=== PATIENT | female | born 1960 | race Caucasian/White ===

== ENCOUNTER 2017-04-27 12:52 | Emergency (ER) | payer MEDICARE, MEDICAID ==
[2017-04-27 13:15] VITALS: BP 123/89
[2017-04-27] MEDS ORDERED: Ketorolac 60 MG/2 ML SDV IM ONE (13:32)
--- NOTE | 2017-04-27 13:38 | EDM.PDOC ---
ED HPI GENERAL MEDICAL PROBLEM - General Chief Complaint: Neck Problem Stated Complaint: NECK PAIN/STIFFNESS Time Seen by Provider: 04/27/17 13:25 Source of Information: Reports: Patient History Limitations: Reports: No Limitations - History of Present Illness INITIAL COMMENTS - FREE TEXT/NARRATIVE: 56 yo female presents with progressive pain and stiffness in her neck since this past Saturday. Denies injury. She called the clinic yesterday and was told to go to the ER. Waited until today and now presents for the same issue. She denies fever or radiation down her arms. She has chronic low back problems and is on meds for that. Has an epidural this past Saturday in her back with some benefit. Doesn't believe she has ever had a neck X-ray, but has had injuries in the remote past. Tried to tip her head back yesterday to take a last drink out of her can of pop and this really hurt her neck. Has not taken anything additional for her neck pain over and above her usual meds for her back. Onset: Gradual Onset Date: 04/23/17 Duration: Day(s):, Getting Worse Location: Reports: Neck Quality: Reports: Ache, Other (stiffness) Severity: Moderate Improves with: Reports: Rest Worsens with: Reports: Movement Context: Reports: Other (hx of chronic low back issues, no hx of neck problems.) Associated Symptoms: Reports: No Other Symptoms Treatments [facility]: Reports: Other (see below) (none) Neck Pain Score (Numeric/FACES): 9 - Related Data Allergies Allergy/AdvReac Type Severity Reaction Status Date / Time codeine AdvReac Vomiting Verified 04/27/17 13:15 Home Meds: Home Meds atorvaSTATin Calcium [Atorvastatin Calcium] 20 mg PO DAILY 07/15/14 [History] Baclofen 20 mg PO TIDMEALS 03/21/16 [History] DULoxetine [Cymbalta] 30 mg PO DAILY 04/17/16 [History] Gabapentin [Neurontin] 800 mg PO TID 04/17/16 [History] Modafinil [Provigil] 200 mg PO DAILY 04/17/16 [History] Prazosin HCl [Prazosin] 2 mg PO BEDTIME 04/17/16 [History] lamoTRIgine [LaMICtal] 200 mg PO DAILY 04/17/16 [History] QUEtiapine Fumarate [Quetiapine Fumarate ER] 300 mg PO BEDTIME 04/27/17 [History ] Past Medical History HEENT History: Reports: Impaired Vision Cardiovascular History: Reports: High Cholesterol Genitourinary History: Reports: UTI, Recurrent [employer] History: Reports: Musculoskeletal History: Reports: Back Pain, Chronic, Fracture Other Musculoskeletal History: knees pop Neurological History: Reports: Concussion Other Neuro History: kicked in head by cow Psychiatric History: Reports: Anxiety, Depression, Suicidal Ideation, Other ( See Below) Other Psychiatric History: insomnia - Infectious Disease History Infectious Disease History: Reports: Chicken Pox, Mumps - Past Surgical History Female Surgical History: Reports: Oophorectomy Dermatological Surgical History: Reports: None Social & Family History - Tobacco Use Smoking Status *Q: Current Every Day Smoker Years of Tobacco use: 19 Packs/Tins Daily: 0.5 Used Tobacco, but Quit: No Second Hand Smoke Exposure: Yes - Caffeine Use Caffeine Use: Reports: Coffee, Soda - Alcohol Use Days Per Week of Alcohol Use: 0 - Recreational Drug Use Recreational Drug Use: Yes Recreational Drug Type: Reports: Marijuana/Hashish ED ROS GENERAL - Review of Systems Review Of Systems: See Below Constitutional: Reports: No Symptoms HEENT: Reports: No Symptoms Respiratory: Reports: No Symptoms Cardiovascular: Reports: No Symptoms GI/Abdominal: Reports: No Symptoms : Reports: No Symptoms Musculoskeletal: Reports: Neck Pain Skin: Reports: No Symptoms Neurological: Reports: No Symptoms ED EXAM, UPPER BACK/NECK PAIN - Physical Exam Exam: See Below Exam Limited By: Intoxication General Appearance: Alert, WD/WN, No Apparent Distress Eye Exam: Bilateral Eye: Normal Inspection Ears Exam: Normal External Exam, Normal Canal, Hearing Grossly Normal, Normal TMs Nose Exam: Normal Inspection, Normal Mucousa, No Blood Throat/Mouth Exam: Normal Inspection, Normal Lips, Normal Oropharynx, Normal Voice, No Airway Compromise Head Exam: Atraumatic, Normocephalic Neck Exam: Normal Inspection, Limited Range of Motion, Painful Range of Motion, Tenderness (bilaterally posteriorly). 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 nml As Tested, No Motor/Sensory Deficits, Alert, Normal Mood/Affect, Oriented x 3 Psychiatric: Normal Affect, Normal Mood Skin Exam: Normal Color, Warm/Dry Lymphatic: No Adenopathy Course - Vital Signs Text/Narrative:: Moderate improvement after Toradol 60 mg IM Last Recorded V/S: Last Vital Signs Temp 36.3 C 04/27/17 13:06 Pulse 85 04/27/17 13:06 Resp 18 04/27/17 13:06 BP 123/89 04/27/17 13:06 Pulse Ox 97 04/27/17 13:06 - Orders/Labs/Meds Orders: Active Orders 24 hr Category Date Time Status Cervical Spine 2V or 3V [CR] Stat Exams 04/27/17 13:32 Taken Meds: Medications Discontinued Medications Generic Name Dose Route Start Last Admin Trade Name Freq PRN Reason Stop Dose Admin Ketorolac Tromethamine 60 mg 04/27/17 13:32 04/27/17 13:37 Toradol IM 04/27/17 13:33 60 mg ONETIME ONE Administration - Radiology Interpretation Free Text/Narrative:: Cervical spine [id number]-[id number] degen changes Departure - Departure Time of Disposition: 14:20 Disposition: Home, Self-Care 01 Condition: Good Clinical Impression: Neck pain - Discharge Information Referrals: Tamara Seals PA [Primary Care Provider] - Forms: ED Department Discharge - My Orders Last 24 Hours: My Active Orders 04/27/17 13:32 Cervical Spine 2V or 3V [CR] Stat - Assessment/Plan Last 24 Hours: My Active Orders 04/27/17 13:32 Cervical Spine 2V or 3V [CR] Stat
--- NOTE | 2017-04-29 10:53 | CR ---
No definite fracture. 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 Correlate for any point tenderness nati culp Anterior osteophytosis lower cervical spine.
== END 2017-04-27 14:29 | disposition home or self-care (01) ==
LOC: JP.ED 12:52
DX: M54.2 Cervicalgia (principal); E78.00 Pure hypercholesterolemia, unspecified; F32.9 Major depressive disorder, single episode, unspecified; F17.210 Nicotine dependence, cigarettes, uncomplicated; Z79.899 Other long term (current) drug therapy; Z88.5 Allergy status to narcotic agent
CPT/HCPCS: 72040; 96372; 99284; J1885; 99283